=== PATIENT | female | born 1990 | race Caucasian/White ===

== ENCOUNTER 2018-06-07 20:53 | Outpatient (CLI) | payer BC ==
[2018-06-08 01:11] LABS: ADD UMIC NO; UR ASCORBIC ACID NEGATIVE (NEGATIVE); UR BILIRUBIN (Dip) NEGATIVE (NEGATIVE); UR BLOOD (Dip) NEGATIVE (NEGATIVE); UR CLARITY CLEAR (CLEAR); UR COLOR YELLOW (YELLOW); UR GLUCOSE (Dip) NEGATIVE (NEGATIVE); UR KETONES (Dip) NEGATIVE (NEGATIVE); UR LEUKOCYTE ESTERASE (Dip) NEGATIVE Leu/ul (NEGATIVE); UR NITRITE (Dip) NEGATIVE (NEGATIVE); UR SPECIFIC GRAVITY (Dip) 1.015 (1.003-1.030); UR TOTAL PROTEIN (Dip) NEGATIVE (NEGATIVE); UR UROBILINOGEN (Dip) NEGATIVE (NEGATIVE)
== END 2018-06-08 01:10 | disposition home or self-care (01) ==
LOC: OBT 20:53 → L-D 20:55
DX: O26.893 Other specified pregnancy related conditions, third trimester (principal); N89.8 Other specified noninflammatory disorders of vagina; Z3A.35 35 weeks gestation of pregnancy
CPT/HCPCS: 76818; 81003

== ENCOUNTER 2018-06-19 08:55 | Inpatient (IN) | payer BC ==
[2018-06-19] MEDS ORDERED: MISOPROSTOL 200 MCG TAB PR ×2 (09:30→17:00)
[2018-06-19] MEDS ORDERED: BUTORPHANOL 2 MG INJ IV (09:30)
[2018-06-19] MEDS ORDERED: OXYTOCIN 30 UNITS/LR 500 ML IV ×2 (09:30→17:00)
[2018-06-19] MEDS ORDERED: LIDOCAINE 1% (MPF) 30 ML INJ INJ (09:30)
[2018-06-19] MEDS ORDERED: METHYLERGONOVINE 0.2 MG INJ IM ×2 (09:30→17:00)
[2018-06-19] MEDS ORDERED: CARBOPROST 250 MCG INJ IM ×2 (09:30→17:00)
[2018-06-19] MEDS: LACTATED RINGER'S 1,000 ML IV* ×4 (09:42→17:00)
[2018-06-19 10:12] LABS: ADD MAN DIFF? NO
[2018-06-19 10:16] LABS: WHITE BLOOD COUNT 10.7 10^3/ul (4.8-10.8)
[2018-06-19 10:16] LABS: BASOPHILS % 0.2 % (0.0-2.0); EOSINOPHILS % 0.1 % (0.0-7.0); HEMATOCRIT 37.2 % (37.0-47.0); HEMOGLOBIN 11.8 g/dl (12.0-16.0); LYMPHOCYTES # 1.6 10^3/ul (0.8-2.9); LYMPHOCYTES % 14.4 % (15.0-51.0); MEAN CORPUSCULAR HEMOGLOBIN 28.1 pg (29.0-33.0); MEAN CORPUSCULAR HGB CONC 31.7 g/dl (32.0-37.0); MEAN CORPUSCULAR VOLUME 88.6 fl (82.0-101.0); MEAN PLATELET VOLUME 12.5 fl (7.4-10.4); MONOCYTE # 0.5 10^3/ul (0.3-0.9); MONOCYTES % 4.7 % (0.0-11.0); NEUTROPHIL # 8.6 10^3/ul (1.6-7.5); NEUTROPHILS % 80.1 % (39.0-77.0); PLATELET COUNT 130 10^3/UL (140-415); RED CELL DISTRIBUTION WIDTH 13.7 % (11.5-14.5)
[2018-06-19 10:35] LABS: PROTIME 11.1 Sec (11.9-14.9); PT RATIO 0.9
[2018-06-19 10:36] LABS: PARTIAL THROMBOPLASTIN TIME 26.9 Sec (25.0-35.0)
[2018-06-19] MEDS ORDERED: NALOXONE (0.4 MG/ML) INJ IV (12:00)
[2018-06-19] MEDS ORDERED: EPHEDrine SULFATE 50 MG/5 ML SYG IV (12:00)
[2018-06-19] MEDS ORDERED: ONDANSETRON 4 MG INJ IV ×2 (12:00→17:00)
[2018-06-19] MEDS ORDERED: DIPHENHYDRAMINE 50 MG INJ IV (12:00)
[2018-06-19] MEDS ORDERED: FENTAnyl 2MCG/ML-ROPIV 0.2% 100 ML BAG EPI (12:00)
[2018-06-19] MEDS: OXYTOCIN 30 UNITS/LR 500 ML IV ×3 (16:34→21:18)
[2018-06-19] MEDS ORDERED: DIBUCAINE 1% 30 GM OINT PR (17:00)
[2018-06-19] MEDS ORDERED: ACETAMINOPHEN 325 MG TAB PO ×2 (17:00)
[2018-06-19 18:38] LABS: RAPID PLASMA REAGIN NONREACTIVE (NR)
[2018-06-19 20:28] LABS: HEPATITIS B SURFACE ANTIGEN NEGATIVE (NEGATIVE)
[2018-06-19] MEDS: BENZOCAINE 20% 56 ML SPRAY TOP (21:17)
[2018-06-19] MEDS: WITCH HAZEL/GLYCERIN PAD PR (21:17)
[2018-06-19] MEDS: IBUPROFEN 600 MG TAB PO (23:13)
[2018-06-20] MEDS: LACTATED RINGER'S 1,000 ML IV* ×2 (01:00→03:41)
[2018-06-20 09:21] LABS: ADD MAN DIFF? NO
[2018-06-20 09:36] LABS: BASOPHIL # 0.1 10^3/ul (0.0-0.1); BASOPHILS % 0.4 % (0.0-2.0); EOSINOPHILS % 0.2 % (0.0-7.0); HEMATOCRIT 38.4 % (37.0-47.0); LYMPHOCYTES % 18.7 % (15.0-51.0); MEAN CORPUSCULAR HEMOGLOBIN 28.4 pg (29.0-33.0); MEAN CORPUSCULAR HGB CONC 31.3 g/dl (32.0-37.0); MEAN PLATELET VOLUME 12.3 fl (7.4-10.4); MONOCYTE # 0.9 10^3/ul (0.3-0.9); MONOCYTES % 5.4 % (0.0-11.0); NEUTROPHILS % 74.7 % (39.0-77.0); PLATELET COUNT 121 10^3/UL (140-415); RED BLOOD COUNT 4.22 10^6/ul (4.20-5.40); RED CELL DISTRIBUTION WIDTH 13.9 % (11.5-14.5)
[2018-06-20] MEDS: SENNA/DOCUSATE NA (8.6MG/50MG) TAB PO ×2 (09:53→20:25)
[2018-06-20] MEDS: MAGNESIUM HYDROXIDE 30ML CUP PO (20:25)
[2018-06-20] MEDS: IBUPROFEN 600 MG TAB PO (20:56)
[2018-06-21] MEDS: LANOLIN 7 GM TUBE TOP (00:20)
[2018-06-21 09:13] LABS: WHITE BLOOD COUNT 10.2 10^3/ul (4.8-10.8)
== END 2018-06-21 14:55 | disposition home or self-care (01) | DRG 775 ==
LOC: OBT 08:55 → L-D 08:56 → OBT 09:02 → L-D 09:02 → PP1 18:52
PROVIDERS: Obstetrics & Gynecology
PROC: 10E0XZZ Delivery of Products of Conception, External Approach (ICD-10-PCS; principal; 2018-06-19)
DX: O80 Encounter for full-term uncomplicated delivery (principal); Z3A.37 37 weeks gestation of pregnancy; Z37.0 Single live birth
CPT/HCPCS: 62319; 85025; 85048; 85610; 85730; 86592; 86850; 86900; 86901; 87340